=== PATIENT | female | born 1995 | race Caucasian/White ===

== ENCOUNTER 2021-06-01 00:23 | Emergency (ER) | payer BC ==
[~2021-06-01] VITALS: Ht 167.6 cm; Wt 102.7 kg
[2021-06-01 01:36] LABS: BASOPHILS % (AUTO) 0.6 % (0.0-2.0); EOSINOPHILS % (AUTO) 0.9 % (1.0-6.0); HEMATOCRIT 41.7 % (36-46); HEMOGLOBIN 13.6 g/dL (12.0-16.0); LYMPHOCYTES # (AUTO) 2.6 K/uL (1.0-4.8); LYMPHOCYTES % (AUTO) 25.3 % (22.0-44.0); MEAN CORPUSCULAR HGB CONC 32.6 G/dL (31.0-37.0); MEAN CORPUSCULAR VOLUME 80 fL (80-100); MONOCYTES # (AUTO) 0.5 K/uL (0.1-1.0); MONOCYTES % (AUTO) 4.9 % (2.0-9.0); NEUTROPHILS # (AUTO) 6.9 K/uL (1.8-7.7); NEUTROPHILS % (AUTO) 68.3 % (40.0-70.0); PLATELET COUNT (AUTO) 345 K/uL (150-450); RED BLOOD CELL COUNT(AUTO) 5.23 MIL/uL (4.00-5.20); RED CELL DISTRIBUTION WIDTH 15.4 % (11.5-14.5)
[2021-06-01 01:44] LABS: ANION GAP 5 mmol/L (8-16); CALCIUM, TOTAL 9.3 mg/dL (8.8-10.5); CARBON DIOXIDE 30 mmol/L (22-29); CHLORIDE 106 mmol/L (98-107); CREATININE 0.78 mg/dL (0.60-1.30); GLOMERULAR FILTR. RATE CALC > 60 mL/min (>60); GLUCOSE,RANDOM 124 mg/dL (70-110); POTASSIUM 4.3 mmol/L (3.5-5.1); SODIUM SERUM 141 mmol/L (136-145); UREA NITROGEN, BLOOD 11 mg/dL (7-18)
[2021-06-01 02:07] LABS: ALANINE AMINOTRANSFERASE 39 U/L (12-78); ALBUMIN 3.7 g/dL (3.4-5.0); ALKALINE PHOSPHATASE 114 U/L (46-116); ASPARTATE AMINOTRANSFERASE 16 U/L (15-37); BILIRUBIN,TOTAL 0.3 mg/dL (0.1-1.0); HCG,QUANTITATIVE < 1 mIU/mL (0-6); TOTAL PROTEIN, SERUM 7.9 g/dL (6.4-8.2)
[2021-06-01] MEDS ORDERED: PB/HYOSCY/ATR/SCOP/LIDO/MAALOX 55 ML BOTTLE PO ONE (02:15)
[2021-06-01 03:30] VITALS: BP 119/72
== END 2021-06-01 03:59 | disposition home or self-care (01) ==
LOC: EMS 00:26
DX: R07.2 Precordial pain (principal)
CPT/HCPCS: 71045; 80053; 84702; 85025; 85379; 93005; 99285; 36415-L1; 36415-TC

== ENCOUNTER 2021-06-23 00:08 | Emergency (ER) | payer BC ==
[~2021-06-23] VITALS: Ht 167.6 cm; Wt 102.3 kg
[2021-06-23 00:39] LABS: BASOPHILS % (AUTO) 0.4 % (0.0-2.0); EOSINOPHILS % (AUTO) 0.2 % (1.0-6.0); HEMATOCRIT 40.3 % (36-46); HEMOGLOBIN 13.3 g/dL (12.0-16.0); LYMPHOCYTES # (AUTO) 1.8 K/uL (1.0-4.8); LYMPHOCYTES % (AUTO) 12.8 % (22.0-44.0); MEAN CORPUSCULAR HEMOGLOBIN 25.7 pg (26.0-34.0); MEAN CORPUSCULAR HGB CONC 32.9 G/dL (31.0-37.0); MEAN CORPUSCULAR VOLUME 78 fL (80-100); MONOCYTES # (AUTO) 0.6 K/uL (0.1-1.0); MONOCYTES % (AUTO) 4.5 % (2.0-9.0); NEUTROPHILS # (AUTO) 11.5 K/uL (1.8-7.7); NEUTROPHILS % (AUTO) 82.1 % (40.0-70.0); PLATELET COUNT (AUTO) 398 K/uL (150-450); RED BLOOD CELL COUNT(AUTO) 5.17 MIL/uL (4.00-5.20)
[2021-06-23 00:48] LABS: ANION GAP 7 mmol/L (8-16); CALCIUM, TOTAL 9.6 mg/dL (8.8-10.5); CARBON DIOXIDE 29 mmol/L (22-29); CHLORIDE 104 mmol/L (98-107); CREATININE 0.77 mg/dL (0.60-1.30); GLOMERULAR FILTR. RATE CALC > 60 mL/min (>60); GLUCOSE,RANDOM 136 mg/dL (70-110); POTASSIUM 4.2 mmol/L (3.5-5.1); SODIUM SERUM 140 mmol/L (136-145); UREA NITROGEN, BLOOD 15 mg/dL (7-18)
[2021-06-23 01:00] LABS: ALANINE AMINOTRANSFERASE 37 U/L (12-78); ALBUMIN 3.9 g/dL (3.4-5.0); ALKALINE PHOSPHATASE 95 U/L (46-116); ASPARTATE AMINOTRANSFERASE 22 U/L (15-37); BILIRUBIN,TOTAL 0.4 mg/dL (0.1-1.0); HCG,QUANTITATIVE < 1 mIU/mL (0-6); LIPASE 74 U/L (73-393)
[2021-06-23] MEDS ORDERED: ACETAMINOPHEN 500 MG TABLET PO ONE (02:00)
[2021-06-23] MEDS ORDERED: KETOROLAC TROMETHAMINE 30 MG/ML VIAL IM ONE (02:00)
[2021-06-23] MEDS ORDERED: MAG HYDROX/AL HYDROX/SIMETH 30 ML SUSP UDCUP PO ONE (02:00)
[2021-06-23] MEDS ORDERED: ONDANSETRON HCL 4 MG TABLET PO ONE (02:00)
[2021-06-23] MEDS ORDERED: FAMOTIDINE 20 MG TABLET PO ONE (02:00)
[2021-06-23 03:21] LABS: APPEARANCE,URINE CLEAR (CLEAR); GLUCOSE, URINE (UA) NEGATIVE (NEGATIVE); KETONES,URINE 40 mg/dL (NEGATIVE); LEUKOCYTE ESTERASE ,URINE NEGATIVE (NEGATIVE); NITRATE,URINE NEGATIVE (NEGATIVE); OCCULT BLOOD,URINE TRACE (NEGATIVE); PROTEIN,URINE TRACE (NEGATIVE); UROBILINOGEN,URINE 0.2 mg/dL (<=1.0)
[2021-06-23 03:22] LABS: BILIRUBIN,URINE PRELIM. POSITIVE (NEGATIVE)
[2021-06-23 03:23] LABS: BACTERIA,URINE Rare /HPF (None Seen); WBC,URINE 0-2 /HPF (0-5)
[2021-06-23] MEDS ORDERED: PIPERACILLIN/TAZO 3.375 GM/D5W 50 ML IV ONE (04:30)
[2021-06-23 05:55] VITALS: BP 114/77
== END 2021-06-23 06:20 | disposition short-term general hospital (02) ==
LOC: EMS 00:13
DX: K81.9 Cholecystitis, unspecified (principal)
CPT/HCPCS: 36415; 76700; 80053; 81001; 83690; 84702; 85025; 96365; 96372; 99285; J1885; J2543; Q0162

== ENCOUNTER 2023-08-21 00:48 | Emergency (ER) | payer BC ==
[~2023-08-21] VITALS: Ht 162.6 cm; Wt 113.6 kg
[2023-08-21 01:00] VITALS: TEMP 103.1
[2023-08-21 01:54] LABS: COVID AG,FIA SOURCE NASAL SWAB
[2023-08-21 02:36] LABS: INFLUENZA TYPE A NEGATIVE FOR TYPE A (NEGATIVE); INFLUENZA TYPE B NEGATIVE FOR TYPE B (NEGATIVE)
[2023-08-21 02:46] LABS: SARS-COV2 (COVID) ANTIGEN,FIA Positive (Negative)
[2023-08-21] MEDS ORDERED: NIRM1TAB10 PO (03:10)
[2023-08-21] MEDS: ONDANSETRON HCL 4 MG TABLET PO ONE (03:15)
[2023-08-21] MEDS: ACETAMINOPHEN 500 MG TABLET PO ONE (03:15)
[2023-08-21] MEDS: SODIUM CHLORIDE 0.9% 1,000 ML IV ONE (03:54)
[2023-08-21 05:10] VITALS: BP 120/76; PULSE 94; RESP 16
== END 2023-08-21 05:56 | disposition home or self-care (01) ==
LOC: EMS 00:48
DX: U07.1 COVID-19 (principal)
CPT/HCPCS: 99283; 96360; 87426; 87804; 81025; Q0162